=== PATIENT | female | born 1955 | race Caucasian/White ===

== ENCOUNTER → 2018-08-02 09:54 | Outpatient (CLI) | payer OTHER, SELFPAY ==
--- NOTE | 2018-08-02 | DI.RAD.S_ITS ---
PROCEDURE: XR SHOULDER LT MIN 2V INDICATIONS: LEFT SHOULDER,UPPER ARM PAIN AFTER FALL TECHNIQUE: 3 views of the shoulder were acquired. COMPARISON: None. FINDINGS: Bones: No fractures or dislocations. No suspicious bony lesions. There is mild acromioclavicular joint degeneration. Visualized ribs appear intact. Soft tissues: No suspicious soft tissue calcifications. IMPRESSION: No fracture or dislocation. Dictated by: Roman Laguerre M.D. on 08/02/2018 at 13:12 Approved by: Roman Laguerre M.D. on 08/02/2018 at 13:13
--- NOTE | 2018-08-02 | DI.RAD.S_ITS ---
PROCEDURE: XR CLAVICLE LT INDICATIONS: LEFT SHOULDER,UPPER ARM PAIN AFTER FALL TECHNIQUE: 2 views of the clavicle were acquired. COMPARISON: [facility], CR, XR SHOULDER LT MIN 2V, 08/02/2018, 10:00. FINDINGS: Bones: No fractures or dislocations. No suspicious bony lesions. There is mild acromial clavicular joint degeneration. Soft tissues: No suspicious soft tissue calcifications. IMPRESSION: No fractures. Dictated by: Roman Laguerre M.D. on 08/02/2018 at 13:10 Approved by: Roman Laguerre M.D. on 08/02/2018 at 13:11
--- NOTE | 2018-08-02 | DI.RAD.S_ITS ---
PROCEDURE: XR HUMERUS LT 2V INDICATIONS: LEFT SHOULDER,UPPER ARM PAIN AFTER FALL TECHNIQUE: 2 views of the humerus were acquired. COMPARISON: None. FINDINGS: Bones: No fractures or dislocations. No suspicious bony lesions. Soft tissues: No suspicious soft tissue calcifications. IMPRESSION: No fracture or dislocation. Dictated by: Roman Laguerre M.D. on 08/02/2018 at 13:11 Approved by: Roman Laguerre M.D. on 08/02/2018 at 13:12
== END ==
PROVIDERS: PCP Internal Medicine; Visit Provider Family Medicine
DX: M25.512 Pain in left shoulder (principal); M19.012 Primary osteoarthritis, left shoulder
CPT/HCPCS: 73000; 73030; 73060

== ENCOUNTER → 2018-11-15 14:06 | Outpatient (CLI) | payer OTHER, SELFPAY | PROVIDERS: PCP Internal Medicine; Visit Provider Orthopaedic Surgery | DX: M25.812 Other specified joint disorders, left shoulder (principal) | CPT/HCPCS: 73221 ==

== ENCOUNTER → 2020-08-26 07:49 | Outpatient (CLI) | payer OTHER, SELFPAY ==
[2020-08-26] MEDS: COVID-19 VACC, Ad26(JANSSEN)/PF 0.5 ML IM (07:59)
== END ==
PROVIDERS: PCP Internal Medicine; Visit Provider Internal Medicine
DX: Z23 Encounter for immunization (principal)
CPT/HCPCS: 0031A; 91303

== ENCOUNTER 2021-09-29 22:35 | Emergency (ER) | payer OTHER, SELFPAY ==
[2021-09-29 22:45] VITALS: BP 169/79; PULSE 62; RESP 22; TEMP 37.2; O2SAT 94
[2021-09-29 23:00] VITALS: BP 133/71; PULSE 62; RESP 18; O2SAT 96
--- NOTE | 2021-09-29 23:02 | ED.GENADULT ---
HPI - General Adult General Chief complaint: Abdominal Pain Stated complaint: abd px, SOB, dizzy Time Seen by Provider: 09/29/21 22:50 Source: patient and EMS Mode of arrival: EMS History of Present Illness HPI narrative: Patient is a 66-year-old female here for evaluation of epigastric abdominal pain. This started several hours prior to arrival here in the ER. She was sitting on her chair at home at the time when the symptoms started. She has had symptoms similar to this in the past but never this bad. She did receive fentanyl prior to arrival. Some nausea but no vomiting. Has had her tubes tied but no other abdominal surgeries. The pain does radiate to her back. She tried to go to sleep but was unable to because of the discomfort. Related Data Home Medications Medication Instructions Recorded Confirmed omeprazole 20 mg capsule,delayed 20 mg PO DAILY 03/08/19 03/08/19 release Allergies Allergy/AdvReac Type Severity Reaction Status Date / Time adhesive tape [ADHESIVE TAPE] Allergy Mild SKIN Verified 03/08/19 14:55 TEARS codeine [CODEINE] Allergy Mild VOMITING Verified 03/08/19 14:55 Review of Systems Constitutional Constitutional: Reports system reviewed and no additional complaints, except as documented Cardiovascular Cardiovascular: Reports as per HPI and Reports system reviewed and no additional complaints, except as documented Respiratory Respiratory: Reports as per HPI and Reports system reviewed and no additional complaints, except as documented Gastrointestinal Gastrointestinal: Reports as per HPI and Reports system reviewed and no additional complaints, except as documented Genitourinary Genitourinary: Reports system reviewed and no additional complaints, except as documented and Reports as per HPI Musculoskeletal Musculoskeletal: Reports system reviewed and no additional complaints, except as documented and Reports as per HPI Hematologic/Lymphatic On Anticoagulants: No Patient History Medical History High risk HPV infection Papanicolaou smear of cervix with atypical squamous cells of undetermined significance (ASC-US) Surgical History (Updated 10/17/17 @ 05:59 by El Ross PA-C) Status post discectomy Status post surgery (10/21/11) Family History (Updated 11/01/16 @ 00:00 by Conversion Provider) Mother Age: 88 Congestive heart failure Social History Smoking Status: Never smoker Smoking Status: Never smoker Exam Initial Vital Signs Initial Vital Signs: Vital Signs Temperature 98.9 F 09/29/21 22:45 Pulse Rate 62 09/29/21 22:45 Respiratory Rate 22 09/29/21 22:45 Blood Pressure 169/79 H 09/29/21 22:45 Pulse Oximetry 94 09/29/21 22:45 HENWA Head: normal to inspection and normocephalic Chest Chest: normal inspection of the chest and No tenderness Resp Effort & Inspection: normal respiratory effort Auscultation: clear to auscultation bilaterally Cardio Rate: regular rate Rhythm: regular rhythm GI Inspection: normal to inspection and non-distended Palpation: No guarding and tender (Epigastric right upper left upper quadrant) Skin General: no rashes or lesions noted Neuro General: patient alert, patient awake, patient oriented x3 and moves all extremities Speech: speech normal Extrem General: normal to inspection and capillary refill normal Psych Appearance: grossly normal and well kempt Speech and Movement: speech and movement normal Course Orders Ordered: ED Orders 09/29/21 22:45 Complete Blood Count AUTO DIFF Stat Comprehensive Metabolic Panel Stat Lipase Stat 09/29/21 22:48 EKG-12 Lead Stat 09/29/21 23:03 US abdomen limited Stat 09/29/21 23:55 CT abdomen pelvis w con Stat 09/30/21 01:59 Urine Culture Stat Urine Microscopic Stat Vital Signs Vital signs: Vital Signs - 8 hr 09/29/21 22:45 09/29/21 23:00 09/29/21 23:31 Temperature 98.9 F Pulse Rate 62 62 60 Respiratory Rate 22 18 17 Blood Pressure 169/79 H 133/71 112/53 L Pulse Oximetry 94 96 95 09/30/21 00:00 09/30/21 00:26 09/30/21 00:30 Temperature Pulse Rate 64 71 69 Respiratory Rate 13 14 16 Blood Pressure 129/66 148/68 H 137/67 Pulse Oximetry 93 98 96 09/30/21 01:00 09/30/21 01:37 Temperature 97.8 F Pulse Rate 68 64 Respiratory Rate 13 13 Blood Pressure 125/66 117/68 Pulse Oximetry 95 94 Medical Decision Making Lab Data Lab results reviewed: Yes I reviewed the patient's lab results. Result diagrams: 09/29/21 22:45 09/29/21 22:45 Labs: Lab Results 04/09/29/21 09/30/21 Range/Units 22:45 22:45 01:59 WBC 8.9 (4.5-11.0) X10^3/uL RBC 4.21 (4.0-5.2) X10^6/uL Hgb 13.0 (12.0-16.0) g/dL Hct 37.7 (36-46) % MCV 89.6 (80-100) fL MCH 30.8 (26-34) PG MCHC 34.4 (30-36) % RDW 12.9 (11.6-14.8) % Plt Count 230 (150-400) X10^3/uL Neut % (Auto) 62.5 (50-75) % Lymph % (Auto) 29.0 (25-40) % Carbon % (Auto) 5.8 (3-14) % Eos % (Auto) 1.9 L (2-4) % Baso % (Auto) 0.8 (0-2) % Neut # (Auto) 5500 (7098-2656) /uL Lymph # (Auto) 2600 (5230-5951) /uL Carbon # (Auto) 500 (0-900) /uL Eos # (Auto) 200 (0-450) /uL Baso # (Auto) 100 (0-100) /uL Sodium 141 (137-145) mmol/L Potassium 3.7 (3.4-5.1) mmol/L Chloride 107 (98-107) mmol/L Carbon Dioxide 29 (22-32) mmol/L BUN 23 H (7-17) mg/dL Creatinine 1.11 H (0.52-1.04) mg/dL Estimated GFR 55 L (>60) mL/min BUN/Creatinine Ratio 20.7 (6-22) Glucose 127 H (80-110) mg/dL Calcium 9.3 (8.4-10.2) mg/dL Total Bilirubin 0.4 (0.2-1.3) mg/dL AST 40 H (14-36) IU/L ALT 22 (<35) IU/L Alkaline Phosphatase 67 (38-126) U/L Total Protein 7.1 (6.3-8.2) g/dL Albumin 4.1 (3.5-5.0) g/dL Globulin 3.0 (1.7-4.1) g/dL Albumin/Globulin Ratio 1.4 (1.0-2.8) Lipase 80 (23-300) U/L Urine RBC 1-5/hpf (0-5/HPF) Urine WBC 0-1/hpf (0-5/HPF) Ur Squamous Epith Cells 0-1 /hpf (0-5/HPF) Urine Bacteria None seen (None) Ur Culture Indicated? Specimen cultured Urine Dip Bedside Urine Glucose Negative Bedside Urine Bilirubin - Negative Bedside Urine Ketone - Negative Urine Specific [place] 1.015 Bedside Urine Occult Blood + Bedside Urine pH 6 Bedside Urine Protein - Negative Bedside Urine Urobilinogen - Negative Bedside Urine Nitrite - Negative Bedside Urine Leukocytes + 70 Esterase Point of care testing: Urine Dip Bedside Urine Glucose Negative Bedside Urine Bilirubin - Negative Bedside Urine Ketone - Negative Urine Specific [place] 1.015 Bedside Urine Occult Blood + Bedside Urine pH 6 Bedside Urine Protein - Negative Bedside Urine Urobilinogen - Negative Bedside Urine Nitrite - Negative Bedside Urine Leukocytes + 70 Esterase Imaging Data US - abdomen: Radiologist's Impression: [place] [address] Ultrasound Report Signed Patient: Rossy Garcia MR#: [id number] : 1955 Acct:[id number] Age/Sex: 66 / F Date of Service: 09/29/21 Loc: ED Accession Number: [id number] ?? Procedure: US abdomen limited Ordering Provider: Amado Berman D.O. PROCEDURE:? US ABDOMEN LIMITED ? INDICATIONS:? RUQ/MIDLINE PAIN; POSSIBLE GALLBLADDER, AAA ? TECHNIQUE:? Real-time scanning was performed of the abdominal and retroperitoneal organs, with image documentation.? ? COMPARISON:? None. ? FINDINGS:? ? Liver:? The liver demonstrates diffusely increased echotexture without focal abnormalities consistent with chronic hepatocellular disease/hepatic steatosis. ? Gallbladder:? Gallbladder is normal in sonographic appearance without gallstones, gallbladder wall thickening, pericholecystic fluid, or abnormal sonographic Cueto's.? ? Biliary ducts:? Intrahepatic bile ducts are non-dilated.? Extrahepatic bile duct caliber measures 9 mm.? Normal is 6-7 mm or less in diameter, or 10 mm or less post-cholecystectomy.? ? Pancreas:? Visualized portions of the pancreas are sonographically normal.? ? Aorta:? Visualized aorta is normal in caliber at less than 3 cm.? ? Iliacs:? Proximal common iliac arteries are normal in caliber at less than 2.5 cm.? ? ? Miscellaneous:? No free abdominal fluid.? ? ? IMPRESSION:? ? 1. The liver demonstrates diffusely increased echotexture without focal abnormalities consistent with chronic hepatocellular disease/hepatic steatosis. Consider correlation with LFTs. ? 2. No evidence for aneurysmal dilatation of the abdominal aorta or iliac vessels. ? 3. No sonographic evidence for cholelithiasis or acute cholecystitis.? Dictated by: Vivek Gonzales M.D. on 09/30/2021 at 0:19 ? ? Approved by: Vivek Gonzales M.D. on 09/30/2021 at 0:20?? CT scan - abdomen/pelvis: Radiologist's Impression: [place] [address] CT Scan Report Signed Patient: Rossy Garcia MR#: [id number] : 1955 Acct:[id number] Age/Sex: 66 / F Date of Service: 09/29/21 Loc: ED Accession Number: [id number] ?? Procedure: CT abdomen pelvis w con Ordering Provider: Amado Berman D.O. PROCEDURE:? CT ABDOMEN PELVIS W CON ? INDICATIONS:? epigastric abdominal pain ? TECHNIQUE:? After the administration of intravenous contrast, axial sections acquired from the lung bases to the pubic symphysis.? Coronal and sagittal reformats were performed.? For radiation dose reduction, the following was used:? automated exposure control, adjustment of mA and/or kV according to patient size.? ? COMPARISON:? None. ? FINDINGS:? Image quality:? Excellent.? ? Lung bases:? Bibasilar atelectasis. Very small hiatal hernia. Heart:? No significant findings. Minimal coronary atherosclerotic calcifications. ? ABDOMEN: Liver:? Unremarkable.? ? Gallbladder:? Gallbladder is distended with mild dilatation of the common bile duct measuring up to 1.3cm in diameter. There is no evidence for pericholecystic inflammation or hyperdense gallstone or choledocholith. Main pancreatic duct is not dilated.? ? Biliary ducts:? No intrahepatic ductal dilatation.? ? Pancreas:? Unremarkable. No peripancreatic inflammation.? ? Spleen:? Unremarkable.? ? Adrenal Glands:? Unremarkable.? ? Kidneys and Ureters:? Unremarkable.? No hydronephrosis or perinephric inflammation.? ? Stomach and Bowel:? Stomach, small bowel loops, and colon are unremarkable.? Scattered colonic diverticula without acute inflammation. Normal appendix. Peritoneum:? No abnormal intraperitoneal fluid.? No free air.? ? Ventral Wall: ? No hernias.? Abdominal Nodes:? No retroperitoneal or mesenteric adenopathy by size criteria.? Vessels:? Aorta and inferior vena cava are normal in size. Scattered atherosclerotic calcifications. ? PELVIS: Pelvic Organs:? Unremarkable.? ? Bladder:? Unremarkable.? ? Pelvic Nodes: No enlarged lymph nodes.? Miscellaneous: No hernias are seen. ? ? ? Bones:? Unremarkable.? ? No acute compression fractures. ? ? IMPRESSION:? 1. Distended gallbladder with mild dilatation of the common bile duct. No evidence for hyperdense gallstones or choledocholiths. No obstructing mass lesions. No intrahepatic ductal dilatation. Normal appearance of the pancreas and pancreatic duct. Consider further evaluation of the gallbladder with ultrasound if there is clinical concern for cholecystitis. 2. Colonic diverticulosis without acute diverticulitis. 3. Normal appendix. 4. Atherosclerotic vascular disease. ? ? Dictated by: Vivek Gonzales M.D. on 09/30/2021 at 0:37 ? ? Approved by: Vivek Gonzales M.D. on 09/30/2021 at 0:47?? ECG Data Attestation: I personally reviewed and interpreted this ECG as follows: Interpretation: Sinus rhythm Ventricular rate is 60 Normal axis Normal QRS Normal QTC No ST T wave changes MDM Narrative Medical decision making narrative: Right upper quadrant ultrasound AAA ultrasound shows no acute pathology. She does have a slightly dilated extrahepatic bile duct. There was no signs of stones. No signs of acute cholecystitis. CT scan again showed dilation of extrahepatic biliary ducts but no other acute pathology. AST is slightly elevated at 40 but otherwise her alk-phos and bilirubin and rest of her LFTs are unremarkable. Lipase is unremarkable. Low suspicion for cardiopulmonary etiology based on her presentation. I do have high suspicion that this potentially is gallbladder pathology potentially she has passed or is passing a stone also given the fact that she has had similar symptoms off and on for the past several months/years. I did discuss the case with Dr. Ronquillo with General surgery who stated that if the patient's symptoms are controlled outpatient follow-up would be appropriate. Upon re-evaluation patient states that her symptoms are improving. We did discuss the findings of the CT scan of the ultrasound and my concerns. Patient's information was passed to Dr. Ronquillo and the patient was given information to contact Dr. Ronquillo office for an outpatient follow-up. She was given return precautions and follow-up instructions. She expressed understanding and agreement. Discharge Plan Departure Patient Disposition: Home Clinical Impression: Abdominal pain Instructions: DI for Abdominal Pain-Adult Activity Restrictions/Additional Instructions: I recommend that you contact the general surgery clinic at the number provided below when their office is open later today. I also recommend a low-fat/low grease diet as this may help prevent symptoms from returning. Please return to the emergency department for any new or worsening symptoms. Prescriptions: No Action omeprazole 20 mg capsule,delayed release(DR/EC) 20 mg PO DAILY 0RF Referrals: Maldonado Ronquillo MD [Physician] - Iar Laws ARNP [Primary Care Provider] -
[2021-09-29 23:03] LABS: Add Manual Diff / Slide Review NO; Basophils Absolute Auto 100 /uL (0-100); Basophils Percent Auto 0.8 % (0-2); Eosinophils Absolute Auto 200 /uL (0-450); Eosinophils Percent Auto 1.9 % (2-4); Hematocrit 37.7 % (36-46); Lymphocytes Absolute Auto 2600 /uL (1100-4500); Mean Corpuscular HGB Conc 34.4 % (30-36); Mean Corpuscular Hemoglobin 30.8 PG (26-34); Mean Corpuscular Volume 89.6 fL (80-100); Monocytes Absolute Auto 500 /uL (0-900); Monocytes Percent Auto 5.8 % (3-14); Neutrophils Absolute Auto 5500 /uL (1500-7000); Neutrophils Percent Auto 62.5 % (50-75); Platelet Count 230 X10^3/uL (150-400); Red Blood Cell Count 4.21 X10^6/uL (4.0-5.2); Red Cell Distribution Width 12.9 % (11.6-14.8); White Blood Cell Count 8.9 X10^3/uL (4.5-11.0)
--- NOTE | 2021-09-29 23:03 | DI.US.S_ITS ---
PROCEDURE: US ABDOMEN LIMITED INDICATIONS: RUQ/MIDLINE PAIN; POSSIBLE GALLBLADDER, AAA TECHNIQUE: Real-time scanning was performed of the abdominal and retroperitoneal organs, with image documentation. COMPARISON: None. FINDINGS: Liver: The liver demonstrates diffusely increased echotexture without focal abnormalities consistent with chronic hepatocellular disease/hepatic steatosis. Gallbladder: Gallbladder is normal in sonographic appearance without gallstones, gallbladder wall thickening, pericholecystic fluid, or abnormal sonographic Cueto's. Biliary ducts: Intrahepatic bile ducts are non-dilated. Extrahepatic bile duct caliber measures 9 mm. Normal is 6-7 mm or less in diameter, or 10 mm or less post-cholecystectomy. Pancreas: Visualized portions of the pancreas are sonographically normal. Aorta: Visualized aorta is normal in caliber at less than 3 cm. Iliacs: Proximal common iliac arteries are normal in caliber at less than 2.5 cm. Miscellaneous: No free abdominal fluid. IMPRESSION: 1. The liver demonstrates diffusely increased echotexture without focal abnormalities consistent with chronic hepatocellular disease/hepatic steatosis. Consider correlation with LFTs. 2. No evidence for aneurysmal dilatation of the abdominal aorta or iliac vessels. 3. No sonographic evidence for cholelithiasis or acute cholecystitis. Dictated by: Vivek Gonzales M.D. on 09/30/2021 at 0:19 Approved by: Vivek Gonzales M.D. on 09/30/2021 at 0:20
[2021-09-29 23:17] LABS: Alanine Aminotransferase 22 IU/L (<35); Albumin 4.1 g/dL (3.5-5.0); Albumin Globulin Ratio 1.4 (1.0-2.8); Alkaline Phosphatase 67 U/L (38-126); Aspartate Aminotransferase 40 IU/L (14-36); BUN Creatinine Ratio 20.7 (6-22); Bilirubin Total 0.4 mg/dL (0.2-1.3); Blood Urea Nitrogen 23 mg/dL (7-17); Calcium 9.3 mg/dL (8.4-10.2); Carbon Dioxide 29 mmol/L (22-32); Chloride 107 mmol/L (98-107); Estimated Glomerular Filt Rate 55 mL/min (>60); Glucose 127 mg/dL (80-110); HEMOLYSIS < 15 (0-50); Lipase 80 U/L (23-300); Potassium 3.7 mmol/L (3.4-5.1); Sodium 141 mmol/L (137-145); Total Protein 7.1 g/dL (6.3-8.2)
[2021-09-29 23:31] VITALS: BP 112/53; PULSE 60; RESP 17; O2SAT 95
--- NOTE | 2021-09-29 23:55 | DI.CT.S_ITS ---
PROCEDURE: CT ABDOMEN PELVIS W CON INDICATIONS: epigastric abdominal pain TECHNIQUE: After the administration of intravenous contrast, axial sections acquired from the lung bases to the pubic symphysis. Coronal and sagittal reformats were performed. For radiation dose reduction, the following was used: automated exposure control, adjustment of mA and/or kV according to patient size. COMPARISON: None. FINDINGS: Image quality: Excellent. Lung bases: Bibasilar atelectasis. Very small hiatal hernia. Heart: No significant findings. Minimal coronary atherosclerotic calcifications. ABDOMEN: Liver: Unremarkable. Gallbladder: Gallbladder is distended with mild dilatation of the common bile duct measuring up to 1.3cm in diameter. There is no evidence for pericholecystic inflammation or hyperdense gallstone or choledocholith. Main pancreatic duct is not dilated. Biliary ducts: No intrahepatic ductal dilatation. Pancreas: Unremarkable. No peripancreatic inflammation. Spleen: Unremarkable. Adrenal Glands: Unremarkable. Kidneys and Ureters: Unremarkable. No hydronephrosis or perinephric inflammation. Stomach and Bowel: Stomach, small bowel loops, and colon are unremarkable. Scattered colonic diverticula without acute inflammation. Normal appendix. Peritoneum: No abnormal intraperitoneal fluid. No free air. Ventral Wall: No hernias. Abdominal Nodes: No retroperitoneal or mesenteric adenopathy by size criteria. Vessels: Aorta and inferior vena cava are normal in size. Scattered atherosclerotic calcifications. PELVIS: Pelvic Organs: Unremarkable. Bladder: Unremarkable. Pelvic Nodes: No enlarged lymph nodes. Miscellaneous: No hernias are seen. Bones: Unremarkable. No acute compression fractures. IMPRESSION: 1. Distended gallbladder with mild dilatation of the common bile duct. No evidence for hyperdense gallstones or choledocholiths. No obstructing mass lesions. No intrahepatic ductal dilatation. Normal appearance of the pancreas and pancreatic duct. Consider further evaluation of the gallbladder with ultrasound if there is clinical concern for cholecystitis. 2. Colonic diverticulosis without acute diverticulitis. 3. Normal appendix. 4. Atherosclerotic vascular disease. Dictated by: Vivek Gonzales M.D. on 09/30/2021 at 0:37 Approved by: Vivek Gonzales M.D. on 09/30/2021 at 0:47
[2021-09-30] VITALS: BP 129/66; PULSE 64; RESP 13; O2SAT 93
[2021-09-30 00:26] VITALS: BP 148/68; PULSE 71; RESP 14; O2SAT 98
[2021-09-30 00:30] VITALS: BP 137/67; PULSE 69; RESP 16; O2SAT 96
[2021-09-30 01:00] VITALS: BP 125/66; PULSE 68; RESP 13; O2SAT 95
[2021-09-30 01:37] VITALS: BP 117/68; PULSE 64; RESP 13; TEMP 36.6; O2SAT 94
[2021-09-30 02:30] LABS: Bacteria Urine None Seen; Culture Indicated Urine Specimen Cultured; RBC Urine 1-5/HPF (0-5/HPF); Squamous Epithelial Cell Urine 0-1 /HPF (0-5/HPF); WBC Urine 0-1/HPF (0-5/HPF)
== END 2021-09-30 01:54 | disposition home or self-care (01) ==
PROVIDERS: Emergency Provider Emergency Medicine; PCP Internal Medicine
DX: R10.13 Epigastric pain (principal); R10.12 Left upper quadrant pain
CPT/HCPCS: 36415; 74177; 76705; 80053; 81003; 81015; 83690; 85025; 87086; 93005; 93010; 99283; 99284; Q9967

== ENCOUNTER → 2023-07-04 15:35 | Outpatient (ROUT) | payer OTHER, MEDICARE, SELFPAY ==
[2023-07-04 19:00] LABS: Influenza A - CEPHEID Flu A NEGATIVE (NEGATIVE); Influenza B - CEPHEID Flu B NEGATIVE (NEGATIVE); Respiratory Syncytial Virus Negative (Negative)
[2023-07-04 19:31] LABS: COVID-19 CEPHEID 4-PLEX PCR Negative (Negative)
== END ==
PROVIDERS: PCP Internal Medicine; Visit Provider Internal Medicine
DX: Z12.11 Encounter for screening for malignant neoplasm of colon (principal)
CPT/HCPCS: 0241U

== ENCOUNTER → 2023-08-08 07:54 | Outpatient (CLI) | payer OTHER, SELFPAY ==
--- NOTE | 2023-08-08 | DI.ECHO.S_ITS ---
[facility]---------+ [facility] +---------+ : : [address] : [place] : : : : [id number] : : : : Phone: [phone]+ Echocardiogram Report + + :Name: JASMINE CROCKETT Study Date: 08/08/2023 Height: 70 in : :[facility] ReadingLocation: Weight: 228 lb : : Gender: Female BSA: 2.2 m2 : :: 1955 Age: 67 yrs BP: 160/96 mmHg: :Reason For Study: MURMUR : :Ordering Physician: LUCIANA, : :CLOTILDE Performed By: Angely Granados : :Referring: CLOTILDE CHOWDHURY : + + Interpretation Summary Normal sinus rhythm. Normal LV size, wall thickness, wall motion and LV systolic function. EF is 55-60%. Normal chamber sizes. No valvular abnormalities. No prior study available for comparison. Procedure: A two-dimensional transthoracic echocardiogram with color flow and Doppler was performed. The study quality was technically adequate. There is no prior echocardiogram noted for this patient. The patient was in sinus rhythm with heart rates between 62-73 bpm during the exam. Left Ventricle: The left ventricle is normal in size and wall thickness. The ejection fraction is estimated to be 55-60%. Diastolic parameters suggest probable normal left ventricular diastolic function and normal filling pressures. Right Ventricle: The right ventricle is normal in size and function. Atria: The left atrial size is normal. Right atrial size is normal. There is no Doppler evidence for an interatrial shunt. Mitral Valve: The mitral valve is normal in structure and function. There is trace mitral regurgitation. Aortic Valve: The aortic valve is trileaflet. The aortic valve opens well. There is no aortic valve stenosis. There is trace aortic regurgitation. Tricuspid Valve: The tricuspid valve is normal in structure and function. There is mild tricuspid regurgitation. The right ventricular systolic pressure is estimated to be at least 19 mmHg based on an estimated right atrial pressure of 3 mm Hg. Pulmonic Valve: The pulmonic valve leaflets are thin and pliable; valve motion is normal. There is mild pulmonic regurgitation. Great Vessels: The aortic root is normal size. The dimensions of the ascending aorta are normal. The IVC is of normal diameter and collapses greater than 50% with a sniff. This suggests a low right atrial pressure of 3 mm Hg. Pericardium/ Pleura There is no pericardial effusion. There is no pleural effusion. MMode/2D Measurements & Calculations LVIDd: 5.1 cm LVOT diam: 2.1 cm LVIDs: 3.1 cm Ao root diam: 2.7 cm FS: 39.5 % asc Aorta Diam: 3.4 cm EPSS: 0.47 cm Ao Arch Diam (Prox Trans): 2.4 cm IVSd: 0.88 cm LVPWd: 0.91 cm LV kemp. diameter/BSA (cm/m^2): 2.3 LV sys. diameter/BSA (cm/m^2): 1.4 LA A2 area: 23.5 cm2 RA long axis: 4.0 cm LA A4 area: 17.6 cm2 RA area: 12.5 cm2 LA length (vol): 5.0 cm RA vol: 33.2 ml LA vol: 69.5 ml RA : 15.0 ml/m2 LA vol index: 31.5 ml/m2 IVC diam: 1.7 cm RVD1 (basal): 3.0 cm RVD2 (mid): 2.4 cm TAPSE: 2.9 cm Doppler Measurements & Calculations Ao V2 max: 145.0 cm/sec LVOT Max Boby: 87.4 cm/sec Ao V2 mean: 97.0 cm/sec LV V1 max P.1 mmHg Ao max P.4 mmHg LV V1 VTI: 20.9 cm Ao mean P.1 mmHg JOGRE(I,D): 2.3 cm2 Ao V2 VTI: 32.1 cm JORGE(V,D): 2.2 cm2 sev ratio: 0.65 JORGE indexed to BSA (cm^2/m^2): 1.1 MV E max boby: 97.0 cm/sec TR max boby: 205.4 cm/sec MV A max boby: 90.0 cm/sec TR max P.9 mmHg MV E/A: 1.1 PA V2 max: 101.1 cm/sec Med Peak E' Boby: 8.2 cm/sec PA V2 mean: 76.7 cm/sec E/E' med: 11.9 PA mean P.6 mmHg Lat Peak E' Boby: 10.1 cm/sec PA pr(Accel): 41.3 mmHg E/E' lat: 9.6 E/e' average: 10.7 MV dec time: 0.23 sec SV(LVOT): 74.6 ml Electronically signed by: Yamilet Pichardo M.D. on Reading Physician:08/09/2023 12:55 AM
--- NOTE | 2023-08-08 08:53 | DI.RAD.S_ITS ---
Bone Density Report Name: JASMINE CROCKETT Age: 67 Sex: Female Ethnicity: White Date of : 1955 Indication: postmenopausal; screening for osteoporosis; Referring Provider: CLOTILDE CHOWDHURY Study: Bone densitometry was performed. Exam Date: August 08, 2023 Accession number: [id number] Bone Density: Region BMD T-score Z-score Classification AP Spine(L1, L2, L3) 1.168 1.4 3.2 Normal Femoral Neck (Left) 0.851 0.0 1.6 Normal Total Hip (Left) 1.048 0.9 2.2 Normal Femoral Neck (Right) 0.898 0.4 2.1 Normal Total Hip (Right) 1.037 0.8 2.1 Normal Total Hip Mean 1.043 0.9 2.2 Normal World Health Organization criteria for BMD impression classify patients as: Normal (T-score at or above -1.0), Osteopenia (T-score between -1.0 and -2.5), or Osteoporosis (T-score at or below -2.5). 10-year Fracture Risk: FRAX not reported because: All T-scores for Spine Total, Hip Total, Femoral Neck at or above -1.0 Impression: The patient has normal bone mass. Discussion: BONE DENSITY IS ABOVE THE MINIMUM DESIRABLE LEVEL AT ALL SKELETAL SITES TESTED. This patient's bone mineral density is above the minimum desirable level (T-score -1.0 or better) at all sites measured. The patient should follow a healthful lifestyle (good nutrition with adequate calcium and vitamin D, and appropriate weight-bearing exercise). Follow-Up: Consider repeating this study in 5 years or sooner if there is some new clinical indication. Reported by: BE STEPHENS M.D. on 08/08/2023 9:29:00 AM.
== END ==
PROVIDERS: PCP Internal Medicine; Referring Provider Internal Medicine; Visit Provider Internal Medicine
DX: I07.1 Rheumatic tricuspid insufficiency (principal); I37.1 Nonrheumatic pulmonary valve insufficiency; R01.1 Cardiac murmur, unspecified; Z13.820 Encounter for screening for osteoporosis; Z78.0 Asymptomatic menopausal state
CPT/HCPCS: 77080; 93306

== ENCOUNTER → 2024-04-24 08:07 | Outpatient (CLI) | payer OTHER, SELFPAY ==
--- NOTE | 2024-04-24 | DI.RAD.S_ITS ---
PROCEDURE: XR HIP W PEL IF DONE RT 2V INDICATIONS: right hip pain TECHNIQUE: AP pelvis with lateral view of the right hip. COMPARISON: None. FINDINGS: Bones: No acute fractures or dislocations. Pelvic ring appears intact. No suspicious bony lesions. Mild bilateral joint space narrowing in the hips with subchondral sclerosis and small marginal osteophytes. Degenerative changes are seen in the included spine. Soft tissues: The visualized bowel gas pattern is normal. No suspicious soft tissue calcifications. IMPRESSION: Mild bilateral hip osteoarthrosis. Approved by: Parish Hernandez M.D. on 04/24/2024 at 10:09
== END ==
PROVIDERS: PCP Internal Medicine; Referring Provider Internal Medicine; Visit Provider Internal Medicine
DX: M25.551 Pain in right hip (principal); M16.0 Bilateral primary osteoarthritis of hip
CPT/HCPCS: 73502

== ENCOUNTER → 2024-05-10 07:43 | Outpatient (CLI) | payer OTHER, SELFPAY ==
--- NOTE | 2024-05-10 07:44 | DI.MG.S_ITS ---
BILATERAL DIGITAL SCREENING MAMMOGRAM 3D/2D WITH CAD: 05/10/2024 CLINICAL: Routine screening. Comparison is made to exam dated: 10/26/2016 mammogram - [facility]. There are scattered areas of fibroglandular density (category b / 25%-50% glandular tissue). Current study was also evaluated with a Computer Aided Detection (CAD) system. No significant masses, calcifications, or other findings are seen in either breast. There has been no significant interval change. IMPRESSION: NEGATIVE There is no mammographic evidence of malignancy. A 1 year screening mammogram is recommended. Based on the Tyrer Cuzick model (a risk assessment model) the patient's lifetime risk is 5.2% and her 10 year risk is 2.7%. According to the ACR, ACS, and NCCN guidelines, an annual breast MRI exam along with mammogram is recommended if the patient's lifetime risk is 20% or greater. This exam was interpreted at Station ID: [id number]. NOTE: For mammograms, a report in lay terms will be sent to the patient. Approximately 15% of breast malignancies will not be visualized mammographically. In the management of a palpable breast mass, a negative mammogram must not discourage biopsy of a clinically suspicious lesion. Electronically Signed By: Parish [email or web address]/[email or web address]:05/10/2024 11:36:56 letter sent: Normal Exam ACR BI-RADS Category 1: Negative
== END ==
PROVIDERS: PCP Internal Medicine; Referring Provider Internal Medicine; Visit Provider Internal Medicine
DX: Z12.31 Encounter for screening mammogram for malignant neoplasm of breast (principal)
CPT/HCPCS: 77063; 77067